=== PATIENT | female | born 1950 | race Asian ===

== ENCOUNTER 2019-10-26 15:41 | Emergency (ER) | payer BC ==
[~2019-10-26] VITALS: Ht 147.3 cm; Wt 45.8 kg
[2019-10-26 15:50] VITALS: BP 101/59
--- NOTE | 2019-10-26 16:00 | NUR ---
PT AMBULATED TO BED 8 WITH STEADY GAIT.
--- NOTE | 2019-10-26 16:00 | NUR ---
69 Y/F PRESENTS TO ED FOR HYPERGLYCEMIA. PT WAS SEEN WITH PCP TODAY AND HAD BS > 500, PT WAS GIVEN 20 UNITS INSULIN AND INSTRUCTED TO COME HERE TO FOLLOW UP. PT REPORTS SHE HAS HAD URINARY FREQUENCY SINCE JULY. PT ALSO REPORTS DRY MOUTH. PT A&O X 4, RR EVEN AND UNLABORED. LUNGS CLEAR, CAP REFILL < 3 SEC, ABD SOFT, BS ACTIVE, NO SWELLING OR EDEMA NOTED TO Antione TURK. PT DENIES SOB, COUGH, FEVER, DYSURIA OR HEMATURA. PMH- DM
--- NOTE | 2019-10-26 16:04 | NUR ---
PT AMBULATED TO BATHROOM, STEADY GAIT.
--- NOTE | 2019-10-26 16:08 | NUR ---
DR. DENG AT BEDSIDE.
[2019-10-26] MEDS ORDERED: NACL 0.9% 500 ML IV ONE (16:11)
--- NOTE | 2019-10-26 16:20 | NUR ---
STAT LABS DRAWN AND GIVEN TO LAB
[2019-10-26 16:37] LABS: BASOPHILS # (AUTO) 0.1 K/uL (0.00-0.22); BASOPHILS % (AUTO) 0.9 % (0.0-2.0); EOSINOPHILS # (AUTO) 0.1 K/uL (0-0.4); EOSINOPHILS % (AUTO) 1.3 % (0.0-4.0); HEMOGLOBIN 12.8 g/dL (12.0-16.0); LYMPHOCYTES # (AUTO) 1.4 K/uL (2.5-16.5); LYMPHOCYTES % (AUTO) 22.8 % (20.5-51.1); MEAN CORPUSCULAR HEMOGLOBIN 30 pg (27-31); MEAN CORPUSCULAR HGB CONC 33 g/dL (33-37); MEAN CORPUSCULAR VOLUME 90.9 fL (80-94); MONOCYTES # (AUTO) 0.4 K/uL (0.8-1.0); MONOCYTES % (AUTO) 7.3 % (1.7-9.3); NEUTROPHILS # (AUTO) 4.1 K/uL (1.8-7.7); NEUTROPHILS % (AUTO) 67.7 % (42.2-75.2); PLATELET COUNT (AUTO) 242 K/uL (140-450); RED BLOOD CELL COUNT(AUTO) 4.29 MIL/uL (4.20-5.40); WHITE BLOOD COUNT (AUTO) 6.1 K/uL (4.8-10.8)
[2019-10-26 17:22] LABS: APPEARANCE,URINE CLEAR (CLEAR); BILIRUBIN,URINE NEGATIVE (NEGATIVE); BLOOD, URINE TRACE-I (NEGATIVE); COLOR,URINE YELLOW (YELLOW); LEUKOCYTE ESTERASE ,URINE NEGATIVE (NEGATIVE); NITRITE, URINE NEGATIVE (NEGATIVE); UGLUCOSE 3+ (NEGATIVE)
[2019-10-26 17:30] LABS: ALBUMIN 3.1 g/dL (3.4-5.0); ANION GAP 11.4 (8-16); ASPARTATE AMINOTRANSFERASE 13 U/L (15-37); CHLORIDE 91 mmol/L (98-107); CREATININE 1.1 mg/dL (0.6-1.3); GFR ARICAN-AMERICAN 64 mL/min (>90); POTASSIUM 4.4 mmol/L (3.5-5.1); SODIUM SERUM 130 mmol/L (136-145); TOTAL BILIRUBIN 0.2 mg/dL (0.0-1.0); UREA NITROGEN, BLOOD 16 mg/dL (7-18)
[2019-10-26 17:34] LABS: GLUCOSE 585 mg/dL (74-106)
[2019-10-26 17:35] LABS: ACETONE, SERUM NEGATIVE (NEGATIVE)
[2019-10-26] MEDS ORDERED: INSULIN REGULAR, HUMAN 100 UNIT/ML VIAL IVP ONE (17:35)
--- NOTE | 2019-10-26 17:44 | NUR ---
PT AMBULATED TO BATHROOM, STEADY GAIT.
--- NOTE | 2019-10-26 17:46 | NUR ---
Teresa jay in [facility] - 10/26/19 at 1802 by [facility] AT BEDSIDE TO DRAW BLOOD CULTURES.
--- NOTE | 2019-10-26 18:02 | NUR ---
PT PLACED ON 3 LEAD ECG AND PULSE OX.
--- NOTE | 2019-10-26 18:58 | NUR ---
ACCUCHECK 258
[2019-10-26 18:59] VITALS: BP 114/61
--- NOTE | 2019-10-26 19:00 | NUR ---
Patient discharged with v/s stable. Written and verbal after care instructions given and explained. Patient verbalized understanding. Ambulatory with steady gait. All questions addressed prior to discharge. Advised to follow up with PMD.
== END 2019-10-26 19:00 | disposition home or self-care (01) ==
LOC: MED 15:41
DX: E10.65 Type 1 diabetes mellitus with hyperglycemia (principal)
CPT/HCPCS: 36415; 80053; 81003; 82009; 82948; 85025; 96374; 99283; J1815; J7030; 96361